=== PATIENT | male | born 1935 | race Caucasian/White ===

== ENCOUNTER → 2017-01-06 | Outpatient (CLI) | payer MEDICARE, OTHER ==
[~2017-01-06] MED LIST: ASPIR LOW81 MG PO; ASTELIN137 MCG/Ac; FLUTICASON0.05 MG/Ac INH; HCTZ/TRIAMTEREN1 TA1 PO; METFORMIN500 MG PO; METOPROLOL SUCC50 M1 PO; NEXIUM40 MG PO; VYTORIN 10 MG-21 TAB PO
== END ==
LOC: LAB 09:56
DX: I10 Essential (primary) hypertension (principal)

== ENCOUNTER → 2017-01-13 | Outpatient (CLI) | payer MEDICARE, OTHER | LOC: LAB 07:59 | DX: Z01.812 Encounter for preprocedural laboratory examination (principal) ==

== ENCOUNTER → 2017-07-02 | Outpatient (CLI) | payer MEDICARE, OTHER ==
[2016-06-11 11:55] VITALS: BP 118/73
== END ==
LOC: LAB 11:26
DX: M79.604 Pain in right leg (principal); M79.605 Pain in left leg

== ENCOUNTER → 2017-07-09 | Outpatient (CLI) | payer MEDICARE, OTHER ==
[2016-06-11 11:55] VITALS: BP 118/73
== END ==
LOC: RAD 10:42
DX: I70.203 Unspecified atherosclerosis of native arteries of extremities, bilateral legs (principal); K76.9 Liver disease, unspecified
CPT/HCPCS: Q9967

== ENCOUNTER → 2017-08-01 | Outpatient (CLI) | payer MEDICARE, OTHER ==
[2016-06-11 11:55] VITALS: BP 118/73
== END ==
LOC: RAD 08:57
DX: K76.89 Other specified diseases of liver (principal); M79.605 Pain in left leg; M79.604 Pain in right leg
CPT/HCPCS: Q9965; Q9967

== ENCOUNTER → 2017-08-13 | Outpatient (CLI) | payer MEDICARE, OTHER ==
[2016-06-11 11:55] VITALS: BP 118/73
== END ==
LOC: LAB 07:30
DX: I70.213 Atherosclerosis of native arteries of extremities with intermittent claudication, bilateral legs (principal)

== ENCOUNTER → 2017-09-19 | Outpatient (CLI) | payer MEDICARE, OTHER ==
[2016-06-11 11:55] VITALS: BP 118/73
[2017-09-19 07:31] LABS: BASO # 0.1 (0.02-0.10); EOS # 0.4 (0.04-0.40); EOS % 4.5 % (0.0-4.0); HEMATOCRIT 38.1 % (42.0-52.0); HEMOGLOBIN 12.3 g/dL (13.5-18.0); LYMPH# 2.4 (1.50-4.00); MEAN CELL VOLUME 89 fl (78-100); MEAN CORPUSCULAR HEMOGLOBIN 29 pg (27-31); MEAN CORPUSCULAR HGB CONC 32 g/dL (33-37); MEAN PLATELET VOLUME 8.6 fl (7.4-10.4); MONO # 0.6 (0.20-0.80); NEU # 4.4 (1.40-6.50); PLATELET COUNT 236 K/mm3 (130-400); RED BLOOD COUNT 4.26 M/mm3 (4.20-5.60); RED CELL DISTRIBUTION WIDTH 13.3 % (11.5-14.5); WHITE BLOOD COUNT 7.8 K/mm3 (4.8-10.8)
[2017-09-19 07:49] LABS: ALBUMIN 4.1 g/dL (3.5-5.0); BUN/CREATININE RATIO 20.2 (6.0-26.0); CALCIUM 9.9 mg/dL (8.4-10.2); POTASSIUM 4.3 mmol/L (3.6-5.0); TOTAL BILIRUBIN 0.7 mg/dL (0.2-1.3); TOTAL PROTEIN 7.2 g/dL (6.3-8.2)
[2017-09-19 08:42] LABS: ERYTHROCYTE SEDIMENTATION RATE 38 mm/hr (0-20)
[2017-09-19 08:48] LABS: PH-URINE 5.5 (5.0 - 8.0); URINE APPEARANCE CLEAR; URINE BILIRUBIN NEGATIVE (NEGATIVE); URINE BLOOD NEGATIVE (NEGATIVE); URINE COLOR YELLOW; URINE GLUCOSE NEGATIVE (NEGATIVE); URINE KETONE NEGATIVE (NEGATIVE); URINE LEUKOCYTE ESTERASE NEGATIVE (NEGATIVE); URINE MUCUS PRESENT (NOT PRESENT); URINE NITRATE NEGATIVE (NEGATIVE); URINE PROTEIN(semi-quant) NEGATIVE (NEGATIVE); URINE UROBILINOGEN NORMAL (NORMAL)
[2017-09-19 23:37] LABS: TESTOSTERONE 550 ng/dL (221-716)
== END ==
LOC: LAB 07:18
PROVIDERS: Internal Medicine
DX: E11.9 Type 2 diabetes mellitus without complications (principal); Z12.11 Encounter for screening for malignant neoplasm of colon; Z12.5 Encounter for screening for malignant neoplasm of prostate; I10 Essential (primary) hypertension; E78.5 Hyperlipidemia, unspecified; R20.2 Paresthesia of skin; N52.9 Male erectile dysfunction, unspecified

== ENCOUNTER 2017-11-20 10:00 | Outpatient (RCR) | payer MEDICARE, OTHER ==
[2016-06-11 11:55] VITALS: BP 118/73
== END 2017-11-20 10:30 | disposition home or self-care (01) ==
LOC: PT
DX: M54.12 Radiculopathy, cervical region (principal); M47.812 Spondylosis without myelopathy or radiculopathy, cervical region
CPT/HCPCS: G8985-GP

== ENCOUNTER → 2017-12-16 | Outpatient (CLI) | payer MEDICARE, OTHER ==
[2016-06-11 11:55] VITALS: BP 118/73
[2017-12-16 07:32] LABS: HEMATOCRIT 38.2 % (42.0-52.0); HEMOGLOBIN 11.8 g/dL (13.5-18.0); MEAN PLATELET VOLUME 8.3 fl (7.4-10.4); RED BLOOD COUNT 4.37 M/mm3 (4.20-5.60); RED CELL DISTRIBUTION WIDTH 14.4 % (11.5-14.5); WHITE BLOOD COUNT 6.5 K/mm3 (4.8-10.8)
[2017-12-16 07:48] LABS: BUN/CREATININE RATIO 19.6 (6.0-26.0); CALCIUM 9.1 mg/dL (8.4-10.2); POTASSIUM 4.4 mmol/L (3.6-5.0)
== END ==
LOC: LAB 07:09
PROVIDERS: Internal Medicine Interventional Cardiology
DX: M79.604 Pain in right leg (principal); M79.605 Pain in left leg; I70.213 Atherosclerosis of native arteries of extremities with intermittent claudication, bilateral legs

== ENCOUNTER → 2018-05-26 | Outpatient (CLI) | payer MEDICARE, OTHER ==
[2016-06-11 11:55] VITALS: BP 118/73
[2018-05-26 10:28] LABS: BASO # 0.1 (0.02-0.10); EOS # 0.2 (0.04-0.40); EOS % 2.4 % (0.0-4.0); HEMATOCRIT 40.1 % (42.0-52.0); HEMOGLOBIN 12.8 g/dL (13.5-18.0); LYMPH# 1.6 (1.50-4.00); MEAN CELL VOLUME 86 fl (78-100); MEAN CORPUSCULAR HEMOGLOBIN 28 pg (27-31); MEAN CORPUSCULAR HGB CONC 32 g/dL (33-37); MONO # 0.5 (0.20-0.80); PLATELET COUNT 282 K/mm3 (130-400); RED BLOOD COUNT 4.65 M/mm3 (4.20-5.60); RED CELL DISTRIBUTION WIDTH 14.9 % (11.5-14.5); WHITE BLOOD COUNT 6.2 K/mm3 (4.8-10.8)
[2018-05-26 10:43] LABS: ALBUMIN 4.3 g/dL (3.5-5.0); BUN/CREATININE RATIO 20.8 (6.0-26.0); CALCIUM 9.5 mg/dL (8.4-10.2); POTASSIUM 4.4 mmol/L (3.6-5.0); TOTAL BILIRUBIN 0.7 mg/dL (0.2-1.3); TOTAL PROTEIN 7.4 g/dL (6.3-8.2)
[2018-05-26 11:35] LABS: ERYTHROCYTE SEDIMENTATION RATE 22 mm/hr (0-20)
[2018-05-26 11:49] LABS: URINE APPEARANCE CLEAR; URINE BILIRUBIN NEGATIVE (NEGATIVE); URINE BLOOD NEGATIVE (NEGATIVE); URINE COLOR YELLOW; URINE GLUCOSE NEGATIVE (NEGATIVE); URINE KETONE NEGATIVE (NEGATIVE); URINE LEUKOCYTE ESTERASE NEGATIVE (NEGATIVE); URINE MUCUS PRESENT (NOT PRESENT); URINE NITRATE NEGATIVE (NEGATIVE); URINE PROTEIN(semi-quant) NEGATIVE (NEGATIVE); URINE UROBILINOGEN NORMAL (NORMAL); URINE WBC 0-1 /hpf (0-3)
[2018-05-26 22:43] LABS: TESTOSTERONE 542 ng/dL (221-716)
== END ==
LOC: LAB 10:09
PROVIDERS: Internal Medicine
DX: Z12.5 Encounter for screening for malignant neoplasm of prostate (principal); Z12.11 Encounter for screening for malignant neoplasm of colon; E11.9 Type 2 diabetes mellitus without complications; E78.5 Hyperlipidemia, unspecified; I10 Essential (primary) hypertension; I34.0 Nonrheumatic mitral (valve) insufficiency; G47.33 Obstructive sleep apnea (adult) (pediatric)

== ENCOUNTER → 2018-05-29 | Outpatient (CLI) | payer MEDICARE, OTHER ==
[2016-06-11 11:55] VITALS: BP 118/73
== END ==
LOC: LAB 09:23
DX: Z12.11 Encounter for screening for malignant neoplasm of colon (principal)

== ENCOUNTER → 2018-10-15 | Outpatient (CLI) | payer MEDICARE, OTHER ==
[2016-06-11 11:55] VITALS: BP 118/73
[~2018-10-15] MED LIST changes: +CILOSTAZOL50 M1 PO; +CLOPIDOGREL75 M2 PEG; +NORVASC2.5 MG PO; +ZESTRIL5 M1 PO
== END ==
LOC: LAB 09:23
DX: H60.91 Unspecified otitis externa, right ear (principal); H92.01 Otalgia, right ear

== ENCOUNTER 2018-10-19 18:17 | Emergency (ER) | payer MEDICARE, OTHER ==
[~2018-10-19 18:17] MED LIST changes: -CILOSTAZOL50 M1 PO; -CLOPIDOGREL75 M2 PEG; -NORVASC2.5 MG PO; -ZESTRIL5 M1 PO
[2018-10-19] MEDS ORDERED: CLOPIDOGREL75 M2 PEG (18:33)
[2018-10-19] MEDS ORDERED: CILOSTAZOL50 M1 PO (18:33)
[2018-10-19] MEDS ORDERED: ZESTRIL5 M1 PO (18:34)
[2018-10-19] MEDS ORDERED: NORVASC2.5 MG PO (18:35)
[2018-10-19 19:13] VITALS: BP 155/81
== END 2018-10-19 19:14 | disposition home or self-care (01) ==
LOC: ED 18:17
DX: M54.32 Sciatica, left side (principal); E11.9 Type 2 diabetes mellitus without complications; I10 Essential (primary) hypertension; I73.9 Peripheral vascular disease, unspecified; K21.9 Gastro-esophageal reflux disease without esophagitis; Z95.0 Presence of cardiac pacemaker; Z98.1 Arthrodesis status; Z96.643 Presence of artificial hip joint, bilateral; Z96.651 Presence of right artificial knee joint; Z79.82 Long term (current) use of aspirin; Z79.84 Long term (current) use of oral hypoglycemic drugs; Z79.899 Other long term (current) drug therapy; Z79.02 Long term (current) use of antithrombotics/antiplatelets

== ENCOUNTER → 2020-12-07 | Outpatient (CLI) | payer MEDICARE, OTHER ==
[~2020-12-07] MED LIST changes: +CILOSTAZOL50 M1 PO; +CLOPIDOGREL75 M2 PEG; +NORVASC2.5 MG PO; +ZESTRIL5 M1 PO
== END ==
LOC: LAB 09:54
DX: Z01.812 Encounter for preprocedural laboratory examination (principal); Z20.828 Contact with and (suspected) exposure to other viral communicable diseases

== ENCOUNTER → 2020-12-13 | Day surgery (SDC) | payer MEDICARE, OTHER | END | disposition home or self-care (01) | LOC: MSO | DX: H25.12 Age-related nuclear cataract, left eye (principal); E11.9 Type 2 diabetes mellitus without complications; I25.2 Old myocardial infarction; I10 Essential (primary) hypertension; G47.33 Obstructive sleep apnea (adult) (pediatric); K21.9 Gastro-esophageal reflux disease without esophagitis; C61 Malignant neoplasm of prostate; Z95.0 Presence of cardiac pacemaker; Z79.899 Other long term (current) drug therapy; Z79.84 Long term (current) use of oral hypoglycemic drugs; Z79.02 Long term (current) use of antithrombotics/antiplatelets; Z98.61 Coronary angioplasty status | CPT/HCPCS: 00142; J0171; J2250; V2787 ==

== ENCOUNTER → 2020-12-27 | Outpatient (CLI) | payer MEDICARE, OTHER ==
[2020-12-27 09:53] LABS: POTASSIUM 4.1 mmol/L (3.5-5.1)
[2020-12-27 10:18] LABS: HEMATOCRIT 40.2 % (42.0-52.0); HEMOGLOBIN 12.6 g/dL (13.5-18.0); MEAN PLATELET VOLUME 9.3 fl (7.4-10.4); RED BLOOD COUNT 4.72 M/mm3 (4.20-5.60); RED CELL DISTRIBUTION WIDTH 14.5 % (11.5-14.5); WHITE BLOOD COUNT 7.9 K/mm3 (4.8-10.8)
== END ==
LOC: LAB 09:07
PROVIDERS: Internal Medicine Interventional Cardiology
DX: Z01.812 Encounter for preprocedural laboratory examination (principal); Z11.59 Encounter for screening for other viral diseases; R60.0 Localized edema

== ENCOUNTER → 2021-02-21 | Outpatient (CLI) | payer MEDICARE, OTHER ==
[~2021-02-21] MED LIST changes: +BYSTOLIC20 MG PO; +CILOSTAZOL50 M1; -CILOSTAZOL50 M1 PO; -CLOPIDOGREL75 M2 PEG; +CLOPIDOGREL75 M2 PO; +EZETIMIBE10 M1 PO; +METFORMIN HCL500 M2 PO; -METFORMIN500 MG PO; +NORVASC 10MG10 MG PO; +PANTOPRAZOLE SO40 MG PO; +SIMVASTATIN20 M1 PO; +VALSARTAN80 MG PO
[2021-02-21 10:12] LABS: POTASSIUM 4.6 mmol/L (3.5-5.1)
[2021-02-21 10:13] LABS: CALCIUM 9.4 mg/dL (8.3-10.5)
== END ==
LOC: LAB 09:49
PROVIDERS: Psychiatry & Neurology Psychiatry
DX: I10 Essential (primary) hypertension (principal)

== ENCOUNTER 2021-07-25 14:08 | Emergency (ER) | payer MEDICARE, OTHER ==
[~2021-07-25] VITALS: Ht 167.6 cm; Wt 80.1 kg
[~2021-07-25 14:08] MED LIST changes: -BYSTOLIC20 MG PO; -EZETIMIBE10 M1 PO; -NORVASC 10MG10 MG PO; -PANTOPRAZOLE SO40 MG PO; -SIMVASTATIN20 M1 PO; -VALSARTAN80 MG PO
[2021-07-25 15:02] LABS: ALBUMIN 3.9 g/dL (3.4-4.8); POTASSIUM 3.9 mmol/L (3.5-5.1)
[2021-07-25 15:03] LABS: CALCIUM 9.1 mg/dL (8.3-10.5)
[2021-07-25 15:04] LABS: TOTAL PROTEIN 6.5 g/dL (6.2-8.1)
[2021-07-25 15:06] LABS: TOTAL BILIRUBIN 0.4 mg/dL (0.2-1.2)
[2021-07-25 15:15] LABS: BASO # 0.02 (0.02-0.10); HEMATOCRIT 39.2 % (42.0-52.0); HEMOGLOBIN 12.4 g/dL (13.5-18.0); LYMPH# 1.04 (1.50-4.00); MEAN CELL VOLUME 88 fl (78-100); MEAN CORPUSCULAR HEMOGLOBIN 28 pg (27-31); MEAN CORPUSCULAR HGB CONC 32 g/dL (33-37); MEAN PLATELET VOLUME 9.2 fl (7.4-10.4); MONO # 0.26 (0.20-0.80); NEU # 1.54 (1.40-6.50); PLATELET COUNT 115 K/mm3 (130-400); RED BLOOD COUNT 4.48 M/mm3 (4.20-5.60); WHITE BLOOD COUNT 2.9 K/mm3 (4.8-10.8)
[2021-07-25 16:59] LABS: URINE APPEARANCE CLEAR; URINE BILIRUBIN NEGATIVE (NEGATIVE); URINE BLOOD NEGATIVE (NEGATIVE); URINE COLOR YELLOW; URINE GLUCOSE NEGATIVE (NEGATIVE); URINE KETONE NEGATIVE (NEGATIVE); URINE LEUKOCYTE ESTERASE NEGATIVE (NEGATIVE); URINE MUCUS PRESENT (NOT PRESENT); URINE NITRATE NEGATIVE (NEGATIVE); URINE PROTEIN(semi-quant) TRACE mg/dL (NEGATIVE); URINE UROBILINOGEN NORMAL (NORMAL)
[2021-07-25 17:34] VITALS: BP 127/68
[2021-07-25] MEDS ORDERED: NORVASC 10MG10 MG PO (18:33)
[2021-07-25] MEDS ORDERED: BYSTOLIC20 MG PO (18:34)
[2021-07-25] MEDS ORDERED: EZETIMIBE10 M1 PO (18:35)
[2021-07-25] MEDS ORDERED: PANTOPRAZOLE SO40 MG PO (18:36)
[2021-07-25] MEDS ORDERED: SIMVASTATIN20 M1 PO (18:36)
[2021-07-25] MEDS ORDERED: VALSARTAN80 MG PO (18:37)
== END 2021-07-25 17:47 | disposition home or self-care (01) ==
LOC: ED 14:08
PROVIDERS: Physician Assistant
DX: E86.0 Dehydration (principal); R19.7 Diarrhea, unspecified; E11.9 Type 2 diabetes mellitus without complications; I10 Essential (primary) hypertension; G47.33 Obstructive sleep apnea (adult) (pediatric); E78.5 Hyperlipidemia, unspecified; Z86.79 Personal history of other diseases of the circulatory system; Z20.822 Contact with and (suspected) exposure to COVID-19; Z79.84 Long term (current) use of oral hypoglycemic drugs; Z79.82 Long term (current) use of aspirin; Z79.899 Other long term (current) drug therapy
CPT/HCPCS: J7030

== ENCOUNTER → 2021-11-24 | Outpatient (CLI) | payer MEDICARE, OTHER ==
[~2021-11-24] MED LIST changes: +BYSTOLIC20 MG PO; +EZETIMIBE10 M1 PO; +NORVASC 10MG10 MG PO; +PANTOPRAZOLE SO40 MG PO; +SIMVASTATIN20 M1 PO; +VALSARTAN80 MG PO
[2021-11-24 08:16] LABS: BASO # 0.05 K/mm3 (0.02-0.10); EOS # 0.16 K/mm3 (0.04-0.40); EOS % 1.8 % (0.0-4.0); HEMATOCRIT 38.5 % (42.0-52.0); HEMOGLOBIN 12.3 g/dL (13.5-18.0); MEAN CELL VOLUME 87 fl (78-100); MEAN CORPUSCULAR HEMOGLOBIN 28 pg (27-31); MEAN CORPUSCULAR HGB CONC 32 g/dL (33-37); MEAN PLATELET VOLUME 9.1 fl (7.4-10.4); NEU # 5.82 K/mm3 (1.40-6.50); PLATELET COUNT 262 K/mm3 (130-400); RED BLOOD COUNT 4.42 M/mm3 (4.20-5.60); RED CELL DISTRIBUTION WIDTH 13.8 % (11.5-14.5); WHITE BLOOD COUNT 9.1 K/mm3 (4.8-10.8)
[2021-11-24 08:26] LABS: ALBUMIN 3.8 g/dL (3.4-4.8)
[2021-11-24 08:27] LABS: POTASSIUM 5.1 mmol/L (3.5-5.1)
[2021-11-24 08:28] LABS: CALCIUM 9.3 mg/dL (8.3-10.5)
[2021-11-24 08:29] LABS: TOTAL PROTEIN 7.4 g/dL (6.2-8.1)
[2021-11-24 08:31] LABS: TOTAL BILIRUBIN 0.8 mg/dL (0.2-1.2)
== END ==
LOC: LAB 07:55
PROVIDERS: Nurse Practitioner
DX: M19.071 Primary osteoarthritis, right ankle and foot (principal)

== ENCOUNTER 2023-09-18 08:00 | Outpatient (RCR) | payer MEDICARE, OTHER ==
[~2023-09-18 08:00] MED LIST changes: +ASPIRIN 81M81 MG/TA2 PO; +VITAMIN D3 MA125 MCG PO
== END 2023-10-16 | disposition home or self-care (01) ==
LOC: CARDREHAB
DX: Z48.812 Encounter for surgical aftercare following surgery on the circulatory system (principal); Z95.2 Presence of prosthetic heart valve

== ENCOUNTER → 2025-03-04 | Outpatient (CLI) | payer MEDICARE, OTHER ==
[2025-03-04 09:52] LABS: BASO # 0.08 K/mm3 (0.02-0.10); EOS # 0.31 K/mm3 (0.04-0.40); EOS % 3.4 % (0.0-4.0); HEMATOCRIT 45.6 % (42.0-52.0); HEMOGLOBIN 14.4 g/dL (13.5-18.0); MEAN CELL VOLUME 85 fl (78-100); MEAN CORPUSCULAR HEMOGLOBIN 27 pg (27-31); MEAN CORPUSCULAR HGB CONC 32 g/dL (33-37); MEAN PLATELET VOLUME 9.1 fl (7.4-10.4); MONO # 0.63 K/mm3 (0.20-0.80); NEU # 5.04 K/mm3 (1.40-6.50); PLATELET COUNT 270 K/mm3 (130-400); RED BLOOD COUNT 5.35 M/mm3 (4.20-5.60); WHITE BLOOD COUNT 9.1 K/mm3 (4.8-10.8)
[2025-03-04 09:55] LABS: ALBUMIN 4.9 g/dL (3.4-4.8)
[2025-03-04 09:57] LABS: CALCIUM 10.1 mg/dL (8.3-10.5)
[2025-03-04 09:58] LABS: TOTAL PROTEIN 8.3 g/dL (6.2-8.1)
[2025-03-04 10:00] LABS: TOTAL BILIRUBIN 0.8 mg/dL (0.2-1.2)
[2025-03-04 10:34] LABS: URINE APPEARANCE CLEAR (CLEAR); URINE COLOR YELLOW (YELLOW)
[2025-03-04 10:35] LABS: URINE BILIRUBIN NEGATIVE (NEGATIVE); URINE BLOOD TRACE-LYSED (NEGATIVE); URINE GLUCOSE 2+ (NEGATIVE); URINE KETONE NEGATIVE (NEGATIVE); URINE LEUKOCYTE ESTERASE NEGATIVE (NEGATIVE); URINE NITRATE NEGATIVE (NEGATIVE); URINE PROTEIN(semi-quant) 1+ (NEGATIVE); URINE WBC 0-1 /hpf (0-3)
[2025-03-04 11:02] LABS: MAGNESIUM 1.7 mg/dL (1.60-2.60)
== END ==
LOC: RAD 09:25
PROVIDERS: Internal Medicine
DX: M25.552 Pain in left hip (principal); Z96.642 Presence of left artificial hip joint